=== PATIENT | male | born 1955 | race Caucasian/White ===

== ENCOUNTER 2017-04-20 10:05 | Emergency (ER) | payer OTHER ==
--- NOTE | 2017-04-20 10:31 | ER Document Report ---
ED Medical Screen (RME) - General Chief Complaint: Productive Cough Stated Complaint: CHEST CONGESTION Time Seen by Provider: 04/20/17 10:25 Mode of Arrival: Ambulatory Information source: Patient Notes: 10 DAYS POST THORACOTOMY, VALVE REPLACEMENT. TRAVEL OUTSIDE OF THE [place] IN LAST 30 DAYS: No - HPI Onset: Yesterday Onset/Duration: Gradual Quality of pain: Other - SORENESS, MID-STERNAL - Related Data Allergies/Adverse Reactions: No Known Allergies Allergy (Unverified 04/20/17 10:07) Past Medical History - General Information source: Patient Past Surgical History: Reports: Hx Cardiac Surgery Review of Systems - Review of Systems Constitutional: Fever Respiratory: See HPI Physical Exam - Vital signs Vitals: Temp Pulse Resp BP Pulse Ox 98.1 F 82 19 190/72 H 97 04/20/17 10:10 04/20/17 10:10 04/20/17 10:10 04/20/17 10:10 04/20/17 10:10 Interpretation: Hypertensive. No: Tachycardic, Tachypneic, Febrile - General General appearance: Appears well, Alert In distress: None - Respiratory Respiratory status: No respiratory distress Course - Vital Signs Vital signs: Temp Pulse Resp BP Pulse Ox 98.1 F 82 19 190/72 H 97 04/20/17 10:10 04/20/17 10:10 04/20/17 10:10 04/20/17 10:10 04/20/17 10:10
[2017-04-20 11:19] LABS: ABSOLUTE LYMPHOCYTES (AUTO) 0.7 10^3/uL (0.5-4.7); ABSOLUTE MONOCYTES (AUTO) 0.9 10^3/uL (0.1-1.4); BASOPHILS % (AUTO) 0.4 % (0-2); EOSINOPHILS % (AUTO) 0.2 % (0-6); HEMATOCRIT 32.3 % (37.9-51.0); HEMOGLOBIN 10.8 g/dL (13.5-17.0); HGB HCT DIFFERENCE 0.1; LYMPHOCYTES % (AUTO) 7.4 % (13-45); MEAN CORPUSCULAR HEMOGLOBIN 28.5 pg (27.0-33.4); MEAN CORPUSCULAR HGB CONC 33.5 g/dL (32.0-36.0); MEAN CORPUSCULAR VOLUME 85 fl (80-97); RED CELL DISTRIBUTION WIDTH 15.3 % (11.5-14.0); WHITE BLOOD COUNT 9.6 10^3/uL (4.0-10.5)
--- NOTE | 2017-04-20 11:23 | ER Document Report ---
ED Respiratory Problem - General Chief Complaint: Productive Cough Stated Complaint: CHEST CONGESTION Time Seen by Provider: 04/20/17 10:25 Mode of Arrival: Ambulatory Information source: Patient Notes: Patient is a 61-year-old male status post aortic valve replacement with a bovine valve at [facility] by Dr. Cabrales who presents today with 2 days of some progressive coughing with some greenish phlegm. Temperature 101.3. Patient denies any real shortness of breath or chest pain. He states his scars are healing well. He denies any calf pain, leg swelling, or rash. Patient denies any runny nose, congestion, dysuria, flank pain, or diarrhea. TRAVEL OUTSIDE OF THE [place] IN LAST 30 DAYS: No - HPI Patient complains to provider of: Cough Onset: Other - See above Initiating Event: Other - See above Quality of pain: No pain Severity: Mild Pain Level: Denies Context: Other - See above Cough: Productive Sputum amount: Small Sputum color: Green Associated symptoms: Other - See above Similar symptoms previously: No Recently seen / treated by doctor: Yes - Related Data Allergies/Adverse Reactions: No Known Allergies Allergy (Unverified 04/20/17 10:07) Home Medications: Current Home Medications Amiodarone HCl [Cordarone 200 mg Tablet] 200 mg PO DAILY 04/20/17 [History] Aspirin [Aspirin 81 mg Chewable Tablet] 81 mg PO DAILY 04/20/17 [History] Atorvastatin Calcium 40 mg PO DAILY 04/20/17 [History] Clopidogrel Bisulfate [Plavix] 75 mg PO DAILY 04/20/17 [History] Furosemide [Lasix 20 mg Tablet] 20 mg PO DAILY 04/20/17 [History] Multivit with Iron,Minerals [Compete] 1 each PO DAILY 04/20/17 [History] Oxycodone HCl/Acetaminophen [Oxycodone-Acetaminophen 5-325] 1 each PO Q4 [History] Potassium Chloride 20 meq PO DAILY 04/20/17 [History] Past Medical History - General Information source: Patient - Social History Smoking Status: Never Smoker Cigarette use (# per day): No Chew tobacco use (# tins/day): No Smoking Education Provided: No Frequency of alcohol use: None Drug Abuse: None Family History: Reviewed & Not Pertinent Patient has suicidal ideation: No Patient has homicidal ideation: No Renal/ Medical History: Denies: Hx Peritoneal Dialysis Musculoskeltal Medical History: Reports Hx Arthritis - Gout Past Surgical History: Reports: Hx Cardiac Surgery Review of Systems - Review of Systems Constitutional: Fever EENT: denies: Eye discharge, Nose congestion, Nose discharge Cardiovascular: denies: Chest pain, Palpitations, Dizziness, Lightheaded Respiratory: Cough. denies: Hurts to breathe, Short of breath Gastrointestinal: denies: Vomiting Genitourinary: denies: Dysuria Musculoskeletal: denies: Leg swelling Skin: Other - no hives. denies: Rash Neurological/Psychological: Other - no slurred speech -: Yes All other systems reviewed and negative Physical Exam - Vital signs Vitals: Temp Pulse Resp BP Pulse Ox 98.1 F 82 19 190/72 H 97 04/20/17 10:10 04/20/17 10:10 04/20/17 10:10 04/20/17 10:10 04/20/17 10:10 Notes: Reviewed vital signs and nursing note as charted by RN. CONSTITUTIONAL: Alert and oriented and responds appropriately to questions. Well -appearing; well-nourished HEAD: Normocephalic; atraumatic ENT: Normal nose; no rhinorrhea; moist mucous membranes; pharynx without lesions noted NECK: Supple without meningismus; non-tender CARD: Regular rate and rhythm; chest wall scars and abdominal scars appear clean , dry, and intact without any obvious surrounding cellulitis or discharge; no murmurs, no clicks, no rubs, no gallops; symmetric distal pulses RESP: Normal chest excursion without splinting or tachypnea; breath sounds clear and equal bilaterally; scattered rhonchi mostly to the left lung field with no wheezing or rhonchi present ABD/GI: Normal bowel sounds; non-distended; soft, non-tender BACK: The back appears normal and is non-tender to palpation, there is no CVA tenderness EXT: Normal ROM in all joints; non-tender to palpation; no edema SKIN: See above NEURO: Moves all extremities equally; Motor and sensory function intact PSYCH: The patient's mood and manner are appropriate. Grooming and personal hygiene are appropriate. Course - Re-evaluation Re-evalutation: 04/20/17 11:22 Given the above history and physical examination with recent aortic valve replacement 10 days ago, presenting with a fever of 101 at home with a cough, we will obtain an x-ray of the chest, blood cultures, and basic labs. We would like to assess for possible bacteremia, pneumonia, or infected valve. Patient has no signs of skin infection. Patient has no calf pain, leg swelling, or chest pain to suggest pulmonary embolism. Urine analysis is pending. EKG shows a heart rate of 74, normal sinus rhythm, left axis deviation, LVH, poor R-wave progression, inverted T waves in leads I, aVL, V5 and V6. I do not have an old EKG to compare. 04/20/17 12:33 X-ray of the chest shows what appears to be some cardiomegaly without failure, possible lingual pneumonia, and possible mass/eventration of the diaphram posteriorly. 04/20/17 12:56 I called and spoke directly to the transfer center cardiac surgeon covering for Dr. Cabrales, Dr. Godinez. I have explained the history, physical, and I have read the x-ray reports. He is aware that the patient is 10 days postop from a valve replacement and he is aware of the fever at home. He states that he does not recommend obtaining a CT of the chest at this time. He states he does not believe that the patient requires admission. He states that he could follow up with his cardiothoracic surgeon in the office at noon today or next . He recommended starting the patient on antibiotics and is comfortable starting the patient on Levaquin. The transfer center then called me back and states that she might be able to have me call Dr. Cabrales's office directly. 04/20/17 13:33 I was able to speak directly to Dr. Cabrales. He states he would like me to place the patient on 500 mg daily Levaquin with blood culture sent. We have provided the first dose of Levaquin and the blood cultures have been sent. He states he does not want me to change the Lasix at this time. He states he would like to see the patient at 10 AM on Monday morning in his office. - Vital Signs Vital signs: Temp Pulse Resp BP Pulse Ox 98.1 F 82 19 190/72 H 97 04/20/17 10:10 04/20/17 10:10 04/20/17 10:10 04/20/17 10:10 04/20/17 10:10 - Laboratory Result Diagrams: 04/20/17 10:52 04/20/17 10:52 Laboratory results interpreted by me: 04/20/17 04/20/17 04/20/17 10:52 10:52 10:52 RBC 3.80 L Hgb 10.8 L Hct 32.3 L RDW 15.3 H Seg Neutrophils % 83.0 H Lymphocytes % 7.4 L NT-Pro-B Natriuret Pep 3750 H Total Protein 6.0 L Discharge - Discharge Clinical Impression: Bacterial pneumonia Condition: Good Disposition: ADMITTED INPATIENT Additional Instructions: Please make sure that you follow-up with doctor cabrales at 10 AM on Monday morning. Please make sure you return immediately with any worsening cough, leg swelling, fever, vomiting, or any other acute problems. Prescriptions: Levofloxacin 500 mg PO DAILY #10 tablet Referrals: MILADIS BALTAZAR NP [Primary Care Provider] - Follow up as needed
[2017-04-20 11:46] LABS: ALANINE AMINOTRANSFERASE 70 U/L (21-72); ALBUMIN 3.6 g/dL (3.5-5.0); ALKALINE PHOSPHATASE 71 U/L (38-126); ANION GAP 12 (5-19); ASPARTATE AMINO TRANSFERASE 37 U/L (17-59); BILIRUBIN,DIRECT 0.4 mg/dL (0.0-0.4); BILIRUBIN,TOTAL 0.7 mg/dL (0.2-1.3); BLOOD UREA NITROGEN 11 mg/dL (7-20); CALCIUM 8.8 mg/dL (8.4-10.2); CARBON DIOXIDE 30 mmol/L (22-30); CHLORIDE 102 mmol/L (98-107); CREATININE RESULT 0.77 mg/dL (0.52-1.25); GLUCOSE 96 mg/dL (75-110); POTASSIUM 4.5 mmol/L (3.6-5.0); SODIUM 143.6 mmol/L (137-145)
--- NOTE | 2017-04-20 11:55 | RADIOLOGY REPORT (SQ) ---
EXAM DESCRIPTION: CHEST PA/LAT COMPLETED DATE/TIME: 04/20/2017 11:39 am REASON FOR STUDY: PRODUCTIVE COUGH, 10 DAYS POST THORACOTOMY COMPARISON: None. EXAM PARAMETERS: NUMBER OF VIEWS: two views TECHNIQUE: Digital Frontal and Lateral radiographic views of the chest acquired. RADIATION DOSE: NA LIMITATIONS: none FINDINGS: LUNGS AND PLEURA: There is ill-defined opacification in the left lung compared to the righ t. There is questionably a 25 mm rounded density in the inferior posterior chest on the lateral. MEDIASTINUM AND HILAR STRUCTURES: No masses or contour abnormalities. HEART AND VASCULAR STRUCTURES: Heart size borderline. No failure. BONES: Sternotomy wires. Heart valve. HARDWARE: None in the chest. OTHER: No other significant finding. IMPRESSION: 1. Cannot exclude a limited lingular pneumonia. 2. Cardiomegaly without failure. 3. Questionable posterior pulmonary mass versus localized eventration of the diaphragm. TECHNICAL DOCUMENTATION: JOB ID: [id number] [employer]- All Rights Reserved
[2017-04-20 11:58] LABS: APPEARANCE,URINE CLEAR; BILIRUBIN,URINE NEGATIVE (NEGATIVE); GLUCOSE, URINE NEGATIVE (NEGATIVE); KETONES,URINE NEGATIVE (NEGATIVE); LEUKOCYTE ESTERASE,URINE NEGATIVE (NEGATIVE); NITRITE,URINE NEGATIVE (NEGATIVE); PROTEIN,URINE NEGATIVE (NEGATIVE); URINE SPECIFIC GRAVITY 1.005; UROBILINOGEN,URINE NEGATIVE mg/dL (<2.0)
[2017-04-20] MEDS ORDERED: LEVOFLOXACIN 500 MG TABLET PO ONE (13:33)
--- NOTE | 2017-04-20 13:36 | EKG REPORT ---
SEVERITY:- ABNORMAL ECG - SINUS RHYTHM PROBABLE LEFT ATRIAL ABNORMALITY INCOMPLETE LEFT BUNDLE BRANCH BLOCK LEFT VENTRICULAR HYPERTROPHY ANTERIOR Q WAVES, POSSIBLY DUE TO LVH : Confirmed by: Saen De Jesus MD 20-Apr-2017 13:36:02
[2017-04-20 13:55] VITALS: BP 170/70
== END 2017-04-20 13:55 | disposition other institution (70) ==
LOC: ER 10:05
DX: J15.9 Unspecified bacterial pneumonia (principal); R05 Cough; Z95.2 Presence of prosthetic heart valve; R50.9 Fever, unspecified; Z79.899 Other long term (current) drug therapy
CPT/HCPCS: 36415; 71020; 80053; 81001; 83880; 85025; 87040; 93005; 93010; 99284

== ENCOUNTER → 2020-01-21 | Outpatient (CLI) | payer OTHER ==
--- NOTE | 2020-01-21 13:40 | WOMENS IMAGING REPORT ---
EXAM DESCRIPTION: 3D DX MAMMO BILAT; U/S BREAST UNILAT LIMITED IMAGES COMPLETED DATE/TIME: 01/21/2020 12:46 pm; 01/21/2020 1:07 pm REASON FOR STUDY: M63.20; M63.20 LT BREAST LUMP R22.9 LOCALIZED SWELLING, MASS AND LUMP, UNSPECIFIE D N63.20 UNSPECIFIED LUMP IN THE LEFT BREAST, UNSPECIFIED QUAD COMPARISON: None. EXAM PARAMETERS: Standard craniocaudal and mediolateral oblique views of each breast recorded using digital acquisition and breast tomosynthesis. Additional true lateral images of the left breast acquired with tomosynthesis. Read with the assistance of CAD: .[employer] Receptionist Version 9.2 LIMITATIONS: None. FINDINGS: RIGHT BREAST MASSES: No suspicious masses. CALCIFICATIONS: Benign calcifications. ARCHITECTURAL DISTORTION: None. ASYMMETRY: None noted. OTHER: No other significant findings. LEFT BREAST MASSES: No suspicious masses. CALCIFICATIONS: Benign calcifications. ARCHITECTURAL DISTORTION: None. ASYMMETRY: None noted. OTHER: No other significant finding. BREAST ULTRASOUND: TECHNIQUE: Static and dynamic grayscale images acquired of the left breast in the specific areas of c linical/mammographic concern, 9 o'clock location and axilla. Selected color Doppler images recorded. ELASTOGRAPHY PERFORMED: No. LIMITATIONS: None. FINDINGS: MASS: No mass identified. Normal glandular tissue. ELASTOGRAPHY CHARACTERISTICS: Not applicable. OTHER: No other significant finding. IMPRESSION: Negative bilateral mammogram and left breast ultrasound. No worrisome findings. BREAST DENSITY: a. The breasts are almost entirely fatty. BIRAD: ASSESSMENT: 2 Benign findings. RECOMMENDATION: RECOMMENDED FOLLOW UP: Birads 1 or 2: No breast imaging finding to explain the patie nt's presenting complaint. Further intervention should be based on the degree of clinical suspicion. SPECIFIC INTERVENTION/IMAGING/CONSULTATION RECOMMENDED:No additional intervention/ imaging/consultati on needed at this time. COMMUNICATION:The imaging findings were not discussed with the patient. His referring provider has be en notified of the findings. COMMENT: The patient has been notified of the results by letter per MQSA requirements. Additional no tification policies are in place for contacting patient with suspicious or incomplete findings. Quality ID #225: The [employer] recommends an annual screening mammogram for women aged 40 years or over. This facility utilizes a reminder system to ensure that all patients receive reminder letters, and/or direct phone calls for appointments. This includes reminders for routine scr eening mammograms, diagnostic mammograms, or other Breast Imaging Interventions when appropriate. Th is patient will be placed in the appropriate reminder system. TECHNICAL DOCUMENTATION: FINDING NUMBER: (1) ASSESSMENT: (1) JOB ID: [id number] 2010 [employer]- All Rights Reserved Reading location - IP/workstation name: [email or web address]
--- NOTE | 2020-01-21 13:40 | WOMENS IMAGING REPORT ---
EXAM DESCRIPTION: 3D DX MAMMO BILAT; U/S BREAST UNILAT LIMITED IMAGES COMPLETED DATE/TIME: 01/21/2020 12:46 pm; 01/21/2020 1:07 pm REASON FOR STUDY: M63.20; M63.20 LT BREAST LUMP R22.9 LOCALIZED SWELLING, MASS AND LUMP, UNSPECIFIE D N63.20 UNSPECIFIED LUMP IN THE LEFT BREAST, UNSPECIFIED QUAD COMPARISON: None. EXAM PARAMETERS: Standard craniocaudal and mediolateral oblique views of each breast recorded using digital acquisition and breast tomosynthesis. Additional true lateral images of the left breast acquired with tomosynthesis. Read with the assistance of CAD: .[employer] Maintenance Man Version 9.2 LIMITATIONS: None. FINDINGS: RIGHT BREAST MASSES: No suspicious masses. CALCIFICATIONS: Benign calcifications. ARCHITECTURAL DISTORTION: None. ASYMMETRY: None noted. OTHER: No other significant findings. LEFT BREAST MASSES: No suspicious masses. CALCIFICATIONS: Benign calcifications. ARCHITECTURAL DISTORTION: None. ASYMMETRY: None noted. OTHER: No other significant finding. BREAST ULTRASOUND: TECHNIQUE: Static and dynamic grayscale images acquired of the left breast in the specific areas of c linical/mammographic concern, 9 o'clock location and axilla. Selected color Doppler images recorded. ELASTOGRAPHY PERFORMED: No. LIMITATIONS: None. FINDINGS: MASS: No mass identified. Normal glandular tissue. ELASTOGRAPHY CHARACTERISTICS: Not applicable. OTHER: No other significant finding. IMPRESSION: Negative bilateral mammogram and left breast ultrasound. No worrisome findings. BREAST DENSITY: a. The breasts are almost entirely fatty. BIRAD: ASSESSMENT: 2 Benign findings. RECOMMENDATION: RECOMMENDED FOLLOW UP: Birads 1 or 2: No breast imaging finding to explain the patie nt's presenting complaint. Further intervention should be based on the degree of clinical suspicion. SPECIFIC INTERVENTION/IMAGING/CONSULTATION RECOMMENDED:No additional intervention/ imaging/consultati on needed at this time. COMMUNICATION:The imaging findings were not discussed with the patient. His referring provider has be en notified of the findings. COMMENT: The patient has been notified of the results by letter per MQSA requirements. Additional no tification policies are in place for contacting patient with suspicious or incomplete findings. Quality ID #225: The [employer] recommends an annual screening mammogram for women aged 40 years or over. This facility utilizes a reminder system to ensure that all patients receive reminder letters, and/or direct phone calls for appointments. This includes reminders for routine scr eening mammograms, diagnostic mammograms, or other Breast Imaging Interventions when appropriate. Th is patient will be placed in the appropriate reminder system. TECHNICAL DOCUMENTATION: FINDING NUMBER: (1) ASSESSMENT: (1) JOB ID: [id number] 2010 [employer]- All Rights Reserved Reading location - IP/workstation name: [facility]ITAL[facility]
== END ==
LOC: WI 12:23
PROVIDERS: ATTEND Nurse Practitioner
DX: R92.0 Mammographic microcalcification found on diagnostic imaging of breast (principal)
CPT/HCPCS: 76642; 77066; G0279; 77062